=== PATIENT | female | born 1980 | race Two or more races ===

== ENCOUNTER 2017-02-21 06:38 | Emergency (ER) | payer OTHER ==
[~2017-02-21] VITALS: Ht 157.5 cm; Wt 61.2 kg
[~2017-02-21 06:38] MED LIST: IBUPROFEN600 MG ORAL; KEFLEX500 MG ORAL; MAALOX MAXIMUM355 M1 PO; OMEPRAZOLE20 M2 ORAL; ZOFRAN4 MG ORAL
[2017-02-21] MEDS ORDERED: Dicyclomine HCl 10mg/5ml oral soln ORAL ONE (07:15)
[2017-02-21] MEDS ORDERED: Lidocaine 2% Visc 15ml soln ORAL ONE (07:15)
[2017-02-21] MEDS ORDERED: PEPCID40 MG PO ×2 (07:15→08:37)
[2017-02-21] MEDS ORDERED: Mylanta II UD 30ml ORAL ONE (07:15)
--- NOTE | 2017-02-21 07:15 | Emergency Room Report ---
History of Present Illness General Chief Complaint: Abdominal Pain Source: Patient Present Illness HPI 36-year-old female with no sig pmhx p/w abdominal pain few hours. Patient states pain started after the meal the night she took a [place] for her chronic back pain on an empty stomach, localized to epigastric area, non radiating, burning in nature, intermittent. No relieving or exacerbating factors. Severity is 5/10. Complains of nausea no vomiting. No diarrhea No hx of abdominal surgeries. No hx of endoscopies/colonoscopies. Allergies: Coded Allergies: No Known Allergies (Unverified , 06/11/15) Patient History Past Medical History: see triage record Past Surgical History: none Pertinent Family History: none Last Menstrual Period: jan 31 Now: No : 2 Reviewed Nursing Documentation: PMH: Agreed, PSxH: Agreed Nursing Documentation-PMH Past Medical History: No Stated History Review of Systems All Other Systems: negative except mentioned in HPI Physical Exam Vital Signs Date Time Temp Pulse Resp B/P (MAP) Pulse Ox O2 Delivery O2 Flow Rate FiO2 02/21/17 06:42 97.5 63 18 136/80 98 Room Air Sp02 EP Interpretation: reviewed, normal General Appearance: normal inspection, well appearing, no apparent distress, alert, GCS 15, non-toxic Head: normocephalic, atraumatic Eyes: bilateral eye normal inspection, bilateral eye PERRL, bilateral eye EOMI ENT: normal ENT inspection, normal pharynx, normal voice, moist mucus membranes Neck: normal inspection, full range of motion, supple Respiratory: normal inspection, lungs clear, normal breath sounds, no respiratory distress, no retraction, no wheezing, speaking full sentences, chest symmetrical Cardiovascular #1: normal inspection, regular rate, rhythm, no edema, normal capillary refill Cardiovascular #2: 2+ radial (R), 2+ radial (L) Gastrointestinal: soft, non-distended, no guarding, other - Mild epigastric tenderness, Hein sign negative, nontender all of the questions Musculoskeletal: normal inspection, back normal, normal range of motion, non- tender Neurologic: normal inspection, alert, oriented x3, responsive, motor strength/ tone normal, sensory intact, normal gait, speech normal Psychiatric: normal inspection, judgement/insight normal, memory normal Skin: normal inspection, normal color, no rash, warm/dry, well hydrated, normal turgor Medical Decision Making Diagnostic Impression: Primary Impression: Epigastric abdominal pain Additional Impression: UTI (urinary tract infection) ER Course 36-year-old female with epigastric abdominal pain Differential Diagnosis: Gastritis, gastroenteritis, cholecystitis, UTI/pyelo At this time abdomen is soft nontender all of the abdomen except for epigastric area, not likely to have acute intra-abdominal surgical pathology, will hold CT for now. Plan: Basic labs, ua Pepcid, maalox, pain control, IVF ER course: Patient has remained stable during ED stay. Pain improved. Repeat abdominal exam is nontender. Tolerating PO Disposition: Patient is to be discharged to home. Prescriptions given are Pepcid Patient is instructed to follow up with their primary care doctor within 5 days. Strict return precautions discussed with patient such as fever, chills, worsening/severe abdominal pain, nausea, vomiting, black or bloody stools, which may indicate severe illness. Patient verbalizes understanding and agrees with plan. Please note that this Emergency Department Report was dictated using [employer] controller technology software, occasionally this can lead to erroneous entry secondary to interpretation by the dictation equipment Rhythm Strip EP Interpretation: Yes Rate: 65 Rhythm: NSR, no PVCs, no ectopy Laboratory Tests Test 02/21/17 06:50 02/21/17 06:55 Urine Color Pale yellow Urine Appearance Clear Urine pH 6 (4.5-8.0) Urine Specific [place] 1.020 (1.005-1.035) Urine Protein Negative (NEGATIVE) Urine Glucose (UA) Negative (NEGATIVE) Urine Ketones 1+ (NEGATIVE) H Urine Occult Blood 1+ (NEGATIVE) H Urine Nitrite Negative (NEGATIVE) Urine Bilirubin Negative (NEGATIVE) Urine Urobilinogen Normal MG/DL (0.0-1.0) Urine Leukocyte Esterase 1+ (NEGATIVE) H Urine RBC 2-4 /HPF (0 - 2) H Urine WBC 2-4 /HPF (0 - 2) Urine Squamous Epithelial Cells Few /LPF (NONE/OCC) Urine Bacteria Moderate /HPF (NONE) H Urine HCG, Qualitative Negative White Blood Count 14.1 K/UL (4.8-10.8) H Red Blood Count 4.72 M/UL (4.20-5.40) Hemoglobin 15.3 G/DL (12.0-16.0) Hematocrit 44.7 % (37.0-47.0) Mean Corpuscular Volume 95 FL (80-99) Mean Corpuscular Hemoglobin 32.5 PG (27.0-31.0) H Mean Corpuscular Hemoglobin Concent 34.3 G/DL (32.0-36.0) Red Cell Distribution Width 10.1 % (11.6-14.8) L Platelet Count 301 K/UL (150-450) Mean Platelet Volume 6.7 FL (6.5-10.1) Neutrophils (%) (Auto) 76.4 % (45.0-75.0) H Lymphocytes (%) (Auto) 15.1 % (20.0-45.0) L Monocytes (%) (Auto) 5.5 % (1.0-10.0) Eosinophils (%) (Auto) 2.2 % (0.0-3.0) Basophils (%) (Auto) 0.9 % (0.0-2.0) Sodium Level 132 MMOL/L (136-145) L Potassium Level 3.3 MMOL/L (3.5-5.1) L Chloride Level 98 MMOL/L (98-107) Carbon Dioxide Level 31 MMOL/L (21-32) Anion Gap 3 (5-15) L Blood Urea Nitrogen 12 mg/dL (7-18) Creatinine 0.7 MG/DL (0.55-1.30) Estimate Glomerular Filtration Rate > 60 mL/min (>60) Glucose Level 108 MG/DL (74-106) H Calcium Level 9.0 MG/DL (8.5-10.1) Total Bilirubin 0.7 MG/DL (0.2-1.0) Aspartate Amino Transferase (AST) 49 U/L (15-37) H Alanine Aminotransferase (ALT) 36 U/L (12-78) Alkaline Phosphatase 91 U/L (46-116) Total Protein 8.0 G/DL (6.4-8.2) Albumin 3.9 G/DL (3.4-5.0) Globulin 4.1 g/dL Albumin/Globulin Ratio 1.0 (1.0-2.7) Lipase 165 U/L (73-393) Last Vital Signs Date Time Temp Pulse Resp B/P (MAP) Pulse Ox O2 Delivery O2 Flow Rate FiO2 02/21/17 06:42 97.5 63 18 136/80 98 Room Air Disposition: HOME, SELF-CARE Condition: Improved Scripts Nitrofurantoin Monohyd/M-Cryst* (MACROBID 100 MG*) 100 Mg Capsule 100 MG ORAL EVERY 12 HOURS for 5 Days, #10 CAP 0 Refills Prov: Silvano Palumbo M.D. 02/21/17 Famotidine (PEPCID) 40 Mg Tablet 40 MG PO DAILY for 7 Days, #7 TAB 0 Refills Prov: Silvano Palumbo M.D. 02/21/17 Nitrofurantoin Monohyd/M-Cryst* (MACROBID 100 MG*) 100 Mg Capsule 100 MG ORAL EVERY 12 HOURS for 5 Days, #10 CAP 0 Refills Prov: Silvano Palumbo M.D. 02/21/17 Famotidine (PEPCID) 40 Mg Tablet 40 MG PO DAILY for 7 Days, #7 TAB 0 Refills Prov: Silvano Palumbo M.D. 02/21/17 Patient Instructions: Abdominal Pain, Adult, Gastritis, Adult, [id number] Silvano Palumbo M.D. Feb 21, 2017 07:15
[2017-02-21 07:21] VITALS: BP 120/72
[2017-02-21 07:24] LABS: BASOPHILS % (AUTO) 0.9 % (0.0-2.0); EOSINOPHILS % (AUTO) 2.2 % (0.0-3.0); LYMPHOCYTES % (AUTO) 15.1 % (20.0-45.0); MEAN CORPUSCULAR HEMOGLOBIN 32.5 PG (27.0-31.0); MEAN CORPUSCULAR HGB CONC 34.3 G/DL (32.0-36.0); MEAN CORPUSCULAR VOLUME 95 FL (80-99); MEAN PLATELET VOLUME 6.7 FL (6.5-10.1); MONOCYTES % (AUTO) 5.5 % (1.0-10.0); NEUTROPHILS % (AUTO) 76.4 % (45.0-75.0); PLATELET COUNT 301 K/UL (150-450); RED BLOOD COUNT 4.72 M/UL (4.20-5.40); RED CELL DISTRIBUTION WIDTH 10.1 % (11.6-14.8); WHITE BLOOD COUNT 14.1 K/UL (4.8-10.8)
[2017-02-21 07:33] LABS: APPEARANCE,URINE CLEAR; KETONES,URINE 1+ (NEGATIVE); LEUKOCYTE ESTERASE ,URINE 1+ (NEGATIVE); NITRITE,URINE NEGATIVE (NEGATIVE); PH,URINE 6 (4.5-8.0); PROTEIN,URINE NEGATIVE (NEGATIVE); UROBILINOGEN,URINE NORMAL MG/DL (0.0-1.0)
[2017-02-21 07:33] LABS: ALANINE AMINOTRANSFERASE 36 U/L (12-78); ANION GAP 3 (5-15); ASPARTATE AMINO TRANSFERASE 49 U/L (15-37); CARBON DIOXIDE 31 MMOL/L (21-32); CHLORIDE 98 MMOL/L (98-107); CREATININE 0.7 MG/DL (0.55-1.30); GLOMERULAR FILTRATION RATE > 60 mL/min (>60); LIPASE 165 U/L (73-393); POTASSIUM 3.3 MMOL/L (3.5-5.1); SODIUM 132 MMOL/L (136-145)
[2017-02-21 08:07] LABS: BACTERIA,URINE MODERATE /HPF; SQUAMOUS EPITHELIAL CELL,UR FEW /LPF (NONE/OCC)
[2017-02-21] MEDS ORDERED: NITROFURANTOIN100 M2 ORAL ×2 (08:09→08:37)
[2017-02-21 08:50] VITALS: BP 118/70
== END 2017-02-21 08:55 | disposition home or self-care (01) ==
LOC: EMR 07:17
DX: R10.13 Epigastric pain (principal); N39.0 Urinary tract infection, site not specified
CPT/HCPCS: 36415; 80053; 81003; 81025; 83690; 85025; 87086; 96374; 96375; 99284; J2405; S0028

== ENCOUNTER 2017-04-08 04:25 | Emergency (ER) | payer OTHER ==
[~2017-04-08] VITALS: Ht 157.5 cm; Wt 60.8 kg
[~2017-04-08 04:25] MED LIST changes: +NITROFURANTOIN100 M2 ORAL; +PEPCID40 MG PO
--- NOTE | 2017-04-08 04:57 | Emergency Room Report ---
History of Present Illness General Chief Complaint: Lower Back Pain or Injury Source: Patient Present Illness HPI The patient drove herself here. She's complaining about right lower back and sciatic pain. She's had this before 3 years ago. She was treated with pain medication at that time and also gabapentin. She tried taking gabapentin tonight but it did not help. She woke up yesterday morning and had pain that radiated down her right leg. She's diagnosis sciatica in the past by either CT or MRI she can't remember which one was a. She says there was a little bit of encroachment on one of her nerves. The pain is 10/10, burning and aching, lower back and radiating down her R leg. No trauma or sentinel event. The patient denies any fevers, dysuria, blood thinners, oncologic problems. The pain is causing some weakness. Her last period was March 26 and normal for her. She has upper respiratory symptoms chest pain cough nausea vomiting. She has been treated with famotidine and omeprazole in the past. Allergies: Coded Allergies: No Known Allergies (Unverified , 06/11/15) Patient History Past Medical History: see triage record Social History: Denies: smoking Social History Narrative erin Key'rommel Last Menstrual Period: mar 26 Now: No : 2 Reviewed Nursing Documentation: PMH: Agreed, PSxH: Agreed Nursing Documentation-PMH Past Medical History: No Stated History Review of Systems All Other Systems: negative except mentioned in HPI Physical Exam Vital Signs Date Time Temp Pulse Resp B/P (MAP) Pulse Ox O2 Delivery O2 Flow Rate FiO2 04/08/17 04:28 98.1 70 18 138/90 98 Room Air Sp02 EP Interpretation: reviewed, normal General Appearance: GCS 15, mild distress - moaning in pain Head: normocephalic, atraumatic Eyes: bilateral eye normal inspection, bilateral eye PERRL ENT: hearing grossly normal, normal voice, moist mucus membranes Neck: full range of motion, supple Respiratory: normal breath sounds, no respiratory distress, speaking full sentences Cardiovascular #1: regular rate, rhythm Cardiovascular #2: 2+ radial (R), 2+ dorsalis pedis (R) Gastrointestinal: normal inspection, normal bowel sounds, non tender Musculoskeletal: digits/nails normal, no calf tenderness, other - discomfort increases with SLR on R, minimal crossover pain from L. Able to ambulate Neurologic: alert, oriented x3, motor strength/tone normal - with some coaching for exam, DTRs symmetric, sensory intact, cerebellar normal, normal gait, speech normal Psychiatric: mood/affect normal Reflexes: 2+ knee (R) - brisk, 2+ ankle (R) Skin: no rash Medical Decision Making Diagnostic Impression: Primary Impression: Sciatica Qualified Codes: M54.31 - Sciatica, right side ER Course The patient presents with exacerbation of pain in her lower back. She has a diagnosis of sciatica in the past. Differential includes a disc herniation, degenerative disc disease, sciatica, muscle strain, muscle spasms and back strain amongst others. We need to exclude UTI. The patient drove herself here. We will give her shot of Toradol. If this is not adequate to control pain will be giving her stronger analgesia. There are no red flag sy or signs. No imaging is indicated a this time. UA clear. Improved and sleeping. Able to ambulate. Discussed treatment plan. Patient stable for outpatient observation and treatment. Laboratory Tests Test 04/08/17 05:13 Urine Color Yellow Urine Appearance Clear Urine pH 6.5 (4.5-8.0) Urine Specific [place] 1.015 (1.005-1.035) Urine Protein Negative (NEGATIVE) Urine Glucose (UA) Negative (NEGATIVE) Urine Ketones Negative (NEGATIVE) Urine Occult Blood Negative (NEGATIVE) Urine Nitrite Negative (NEGATIVE) Urine Bilirubin Negative (NEGATIVE) Urine Urobilinogen Normal MG/DL (0.0-1.0) Urine Leukocyte Esterase 1+ (NEGATIVE) H Urine RBC 0-2 /HPF (0 - 2) Urine WBC 0-2 /HPF (0 - 2) Urine Squamous Epithelial Cells Moderate /LPF (NONE/OCC) H Urine Amorphous Sediment Moderate /LPF (NONE) H Urine Bacteria Few /HPF (NONE) Urine HCG, Qualitative Negative Last Vital Signs Date Time Temp Pulse Resp B/P (MAP) Pulse Ox O2 Delivery O2 Flow Rate FiO2 04/08/17 05:58 98.1 14 132/89 100 Room Air 04/08/17 05:58 65 Status: improved Disposition: HOME, SELF-CARE Condition: Improved Scripts Famotidine (FAMOTIDINE) 20 Mg Tablet 20 MG ORAL DAILY, #20 TAB 0 Refills Prov: Srinivas Zamudio M.D. 04/08/17 Hydrocodone Bit/Acetaminophen 5-325* (NORCO 5-325*) 1 Each Tablet 1 TAB ORAL Q6H Y for For Pain, #14 TAB 0 Refills Prov: Srinivas Zamudio M.D. 04/08/17 Gabapentin* (GABAPENTIN*) 300 Mg Capsule 300 MG ORAL THREE TIMES A DAY, #60 CAP 1 Refill Prov: Srinivas Zamudio M.D. 04/08/17 Ibuprofen* (MOTRIN*) 600 Mg Tablet 600 MG ORAL Q6H Y for For Pain, #16 TAB Prov: Srinivas Zamudio M.D. 04/08/17 Srinivas Zamudio M.D. Apr 08, 2017 04:57
[2017-04-08] MEDS ORDERED: Ketorolac 60mg Inj IM ONE (05:00)
[2017-04-08 05:26] LABS: APPEARANCE,URINE CLEAR; KETONES,URINE NEGATIVE (NEGATIVE); LEUKOCYTE ESTERASE ,URINE 1+ (NEGATIVE); NITRITE,URINE NEGATIVE (NEGATIVE); PH,URINE 6.5 (4.5-8.0); PROTEIN,URINE NEGATIVE (NEGATIVE); UROBILINOGEN,URINE NORMAL MG/DL (0.0-1.0)
[2017-04-08 05:35] LABS: BACTERIA,URINE FEW /HPF; RBC,URINE 0-2 /HPF (0 - 2); SQUAMOUS EPITHELIAL CELL,UR MODERATE /LPF (NONE/OCC); WBC,URINE 0-2 /HPF (0 - 2)
[2017-04-08 05:36] LABS: AMORPHOUS SEDIMENT,UR MODERATE /LPF
[2017-04-08] MEDS ORDERED: NORCO 5-325 TA1 EACH ORAL (05:48)
[2017-04-08] MEDS ORDERED: IBUPROFEN600 MG ORAL (05:48)
[2017-04-08] MEDS ORDERED: FAMOTIDINE20 MG ORAL (05:48)
[2017-04-08] MEDS ORDERED: GABAPENTIN300 MG ORAL (05:48)
[2017-04-08 05:58] VITALS: BP 132/89
== END 2017-04-08 05:50 | disposition home or self-care (01) ==
LOC: EMR 04:40
DX: M54.41 Lumbago with sciatica, right side (principal)
CPT/HCPCS: 81003; 81025; 96372; 99284

== ENCOUNTER 2018-03-17 03:24 | Emergency (ER) | payer OTHER ==
[~2018-03-17] VITALS: Ht 157.5 cm; Wt 61.7 kg
[~2018-03-17 03:24] MED LIST changes: +FAMOTIDINE20 MG ORAL; +GABAPENTIN300 MG ORAL; +NORCO 5-325 TA1 EACH ORAL
[2018-03-17] MEDS ORDERED: NKM (03:38)
[2018-03-17 03:42] VITALS: BP 125/84
[2018-03-17] MEDS ORDERED: MUPIROCIN22 GM TOPIC (03:59)
[2018-03-17] MEDS ORDERED: BACTRIM DS TAB1 EAC1 ORAL (03:59)
[2018-03-17] MEDS ORDERED: Bactrim-DS 1 tab ORAL ONE (04:00)
--- NOTE | 2018-03-17 04:00 | Emergency Room Report ---
History of Present Illness General Chief Complaint: Skin Rash/Abscess Source: Patient Present Illness HPI This is a 37-year-old female with no past medical issue. She presents with swelling to the left face. Onset for 2 days. Initially she felt some itchiness and small pimple. She scratching it. Now her left cheek is swollen and left upper eyelid is also swollen. No fever. No drainage. Worse with scratching. No other complaint. Allergies: Coded Allergies: No Known Allergies (Unverified , 06/11/15) Patient History Past Medical History: see triage record, old chart reviewed Past Surgical History: none Pertinent Family History: none Social History: Denies: smoking Last Menstrual Period: 03/14/2018 Now: No : 2 Para: 2 Immunizations: other Reviewed Nursing Documentation: PMH: Agreed; PSxH: Agreed Nursing Documentation-PMH Past Medical History: No Stated History Review of Systems Eye: Denies: eye pain, blurred vision ENT: Denies: ear pain, nose congestion, throat swelling Respiratory: Denies: cough, shortness of breath Cardiovascular: Denies: chest pain, palpitations Gastrointestinal: Denies: abdominal pain, diarrhea, nausea, vomiting Musculoskeletal: Denies: back pain, joint pain Skin: Denies: rash Neurological: Denies: headache, numbness Endocrine: Denies: increased thirst, increased urine Hematologic/Lymphatic: Denies: easy bruising All Other Systems: negative except mentioned in HPI Physical Exam Vital Signs Date Time Temp Pulse Resp B/P (MAP) Pulse Ox O2 Delivery O2 Flow Rate FiO2 03/17/18 03:35 98.1 68 16 125/84 97 Room Air vitals normal Sp02 EP Interpretation: reviewed, normal General Appearance: well appearing, no apparent distress, alert Head: normocephalic, atraumatic Eyes: left eye other - Left upper eyelid with mild puffiness. There is a small indurated area, pimply in nature. No abscess seen.; bilateral eye PERRL, bilateral eye EOMI ENT: hearing grossly normal, normal pharynx, other - Left cheek: There is an indurated area of 2 cm. There was a central whitish area of 1 mm. Neck: full range of motion, supple, no meningismus Respiratory: chest non-tender, lungs clear, normal breath sounds Cardiovascular #1: regular rate, rhythm, no murmur Gastrointestinal: normal bowel sounds, non tender, no mass, no organomegaly, no bruit, non-distended Musculoskeletal: back normal, gait/station normal, normal range of motion Psychiatric: mood/affect normal Skin: warm/dry Procedures Incision and Drainage Incision and Drainage : Consent: Verbal Site: Face Blade Size: 11 Wound Location: face Anesthesia: 1% Lidocaine Volume Anesthetic (ccs): 1 Patient Tolerated: Well Complications: None Progress Area cleaned with chlorhexidine. Local anesthetic injected. I made a very small incision and scant amount of purulent Discharge expressed. Patient tolerated procedure without a problem. Medical Decision Making Diagnostic Impression: Primary Impression: Eyelid cellulitis Qualified Codes: H00.036 - Abscess of eyelid left eye, unspecified eyelid Additional Impressions: Facial cellulitis Abscess ER Course Patient with early cellulitis of the face and eyelid. No orbital cellulitis. No deep infection. We'll discharge home Last Vital Signs Date Time Temp Pulse Resp B/P (MAP) Pulse Ox O2 Delivery O2 Flow Rate FiO2 03/17/18 03:42 98.1 74 16 125/84 97 Room Air Status: improved Disposition: HOME, SELF-CARE Condition: Stable Scripts Mupirocin* (MUPIROCIN*) 22 Gm Oint...g. 1 APPLIC TOPIC THREE TIMES A DAY, #22 GM Prov: Pedro Calles MD 03/17/18 Trimethoprim/Sulfamethoxazole 160/800* (BACTRIM DS TABLET*) 1 Each Tablet 1 TAB ORAL Q12H, #14 TAB 0 Refills Prov: Pedro Calles MD 03/17/18 Additional Instructions: Keep wound clean. Clean with hydroperoxide. Apply antibiotic. Follow-up with your DrLove in 2-3 days for recheck. Return if worse. Pedro Calles MD Mar 17, 2018 04:00
== END 2018-03-17 04:10 | disposition home or self-care (01) ==
LOC: EMR 04:00
DX: H00.034 Abscess of left upper eyelid (principal); L03.211 Cellulitis of face; L02.01 Cutaneous abscess of face
CPT/HCPCS: 10060; 99283

== ENCOUNTER 2019-02-06 09:55 | Emergency (ER) | payer OTHER ==
[~2019-02-06] VITALS: Ht 162.6 cm; Wt 63.5 kg
[~2019-02-06 09:55] MED LIST changes: +BACTRIM DS TAB1 EAC1 ORAL; +MUPIROCIN22 GM TOPIC; +NKM
[2019-02-06 10:01] VITALS: BP 115/81
[2019-02-06] MEDS ORDERED: NKM (10:05)
--- NOTE | 2019-02-06 10:07 | NUR ---
ED Nurse Note: Pt came in due to left posterior thigh swelling, itchiness and redness x 2 days. Pt states she wiped alcohol on it and did not do anything. Pressure pain when she sits down. AAO x4 and ambulatory.
[2019-02-06] MEDS ORDERED: CEPHALEXIN500 MG ORAL (10:27)
[2019-02-06 10:30] VITALS: BP 123/70
--- NOTE | 2019-02-06 10:30 | NUR ---
ER DISCHARGE NOTE: Patient is cleared to be discharged per ERMD, pt is aox4, on room air, with stable vital signs. pt was given dc and prescription instructions, pt was able to verbalize understanding, pt id band removed. pt is able to ambulate with steady gait. pt took all belongings.
--- NOTE | 2019-02-06 12:59 | Emergency Room Report ---
History of Present Illness General Chief Complaint: Skin Rash/Abscess Source: Patient Present Illness HPI 38-year-old female presents ED for evaluation. Complaining of pain and redness to the left posterior thigh. Started 2 days ago. Thinks it could be a spider bite. It is burning, 7 out of 10, nonradiating. Denies fevers or chills. Denies sick contacts or recent travel. Denies any discharge. No other aggravating relieving factors. Denies any other associated symptoms Allergies: Coded Allergies: No Known Allergies (Unverified , 06/11/15) Patient History Past Medical History: none Past Surgical History: none Pertinent Family History: none Social History: Denies: smoking, alcohol use, drug use Last Menstrual Period: 02/04/19 Now: No Immunizations: UTD Reviewed Nursing Documentation: PMH: Agreed; PSxH: Agreed Nursing Documentation-PMH Past Medical History: No Stated History Review of Systems All Other Systems: negative except mentioned in HPI Physical Exam Vital Signs Date Time Temp Pulse Resp B/P (MAP) Pulse Ox O2 Delivery O2 Flow Rate FiO2 02/06/19 10:01 98.2 62 17 115/81 98 Room Air Sp02 EP Interpretation: reviewed, normal General Appearance: no apparent distress, alert, GCS 15, non-toxic Head: normocephalic Eyes: bilateral eye normal inspection, bilateral eye PERRL ENT: normal ENT inspection Neck: normal inspection Respiratory: normal inspection Cardiovascular #1: normal inspection Gastrointestinal: normal inspection Rectal: deferred Genitourinary: no CVA tenderness Musculoskeletal: normal inspection Neurologic: alert, oriented x3, responsive, motor strength/tone normal, sensory intact, speech normal Psychiatric: judgement/insight normal, memory normal, mood/affect normal, no suicidal/homicidal ideation Skin: rash - induration/erythema to L proximal posterior thigh. no fluctuance or discharge Lymphatic: normal inspection Medical Decision Making Diagnostic Impression: Primary Impression: Cellulitis of thigh ER Course Hospital Course 38-year-old female presents to ED with redness, swelling to L posterior thigh Differential diagnoses include: Cellulitis, dermatitis, insect bite, abscess Clinical course Patient placed on stretcher. After initial history, physical exam reveals a female in no acute distress. on exam there is erythema/induration to the L posterior proximal thigh. No fluctuance or discharge. Remains isolated to the posterior thigh. Patient is afebrile, nontoxic-appearing. Vitals stable. I discussed findings with patient. Will discharge to home with antibiotics. Will provide PMD referrals Diagnosis - cellulitis of thigh stable and discharged to home with prescription for Keflex. warm compresses. Instructed to followup with PMD. Instructed return to ED if symptoms recur or worsen Last Vital Signs Date Time Temp Pulse Resp B/P (MAP) Pulse Ox O2 Delivery O2 Flow Rate FiO2 02/06/19 10:30 98.0 74 18 123/70 100 Room Air Status: improved Disposition: HOME, SELF-CARE Condition: Stable Scripts Cephalexin* (KEFLEX*) 500 Mg Capsule 500 MG ORAL EVERY 6 HOURS for 7 Days, #28 CAP Prov: Adelfo Anderson MD 02/06/19 Referrals: [facility] Patient Instructions: Cellulitis, [id number] Adelfo Anderson MD Feb 06, 2019 12:59
== END 2019-02-06 10:30 | disposition home or self-care (01) ==
LOC: EMR 10:10
DX: L03.116 Cellulitis of left lower limb (principal)
CPT/HCPCS: 99282